=== PATIENT | female | born 1945 | race Hispanic/Latino ===

== ENCOUNTER → 2018-09-13 | Outpatient (CLI) | payer MEDICARE, OTHER ==
[~2018-09-13] MED LIST: IOPAMIDOL 370 MG/ML 200 ML INFUS..BTL INJ ONE; SODIUM CHLORIDE 0.9% 50ML 50 ML ONE
[2018-09-13 09:37] LABS: BLOOD UREA NITROGEN 17 mg/dL (7-26); BUN/CREATININE RATIO 24 (6-25); EST GLOMERULAR FILTRATION RATE > 60 ML/MIN (60-)
--- NOTE | 2018-09-13 11:28 | Diagnostic Imaging Report ---
EXAM: CT Abdomen and Pelvis WITH contrast INDICATION: Gallbladder calculus. COMPARISON: None. TECHNIQUE: Abdomen and pelvis were scanned utilizing a multidetector helical scanner from the lung base to the pubic symphysis after administration of IV contrast. Coronal and sagittal reformations were obtained. Routine protocol was performed. Scan was performed when during portal venous phase. IV CONTRAST: 100 cc of Isovue 370 ORAL CONTRAST: Water COMPLICATIONS: None RADIATION DOSE: Total DLP: 323.3 mGy*cm Dose modulation, iterative reconstruction, and/or weight based adjustment of the mA/kV was utilized to reduce the radiation dose to as low as reasonably achievable. FINDINGS: LINES and TUBES: None. LOWER THORAX: Patchy opacities at the lung bases, likely atelectasis. HEPATOBILIARY: Diffuse mild hepatic steatosis. No evidence of focal lesion. No biliary ductal dilation. GALLBLADDER: No radio-opaque stones or sludge. No wall thickening. There is a gallbladder fold. SPLEEN: No splenomegaly. PANCREAS: No focal masses or ductal dilatation. ADRENALS: No adrenal nodules KIDNEYS/URETERS: Kidneys enhance symmetrically. No evidence of hydronephrosis, solid mass, or stone. Subcentimeter left renal hypodensities are too small to characterize, but likely represent cysts. There is a 1.2 cm left lower pole renal cyst. GI TRACT: No evidence of wall thickening or distension. Appendix is not clearly identified. There is however no fat stranding or adenopathy in the right lower quadrant to suggest appendicitis. There is scattered colonic diverticulosis without CT evidence of diverticulitis. PELVIC ORGANS/BLADDER: The uterus is not visualized. LYMPH NODES: No lymphadenopathy. Nonspecific 7 mm right pericecal lymph node. VESSELS: There are scattered atherosclerotic calcifications in the aorta and branch vessels with associated tortuosity. PERITONEUM / RETROPERITONEUM: No free air or fluid. BONES AND SOFT TISSUES: No acute osseous abnormality. No suspicious lytic or blastic lesions.. CONCLUSION: No evidence of gallstone as clinically queried. Mild hepatic steatosis. Signed by: Dr. Monica Venegas MD on 09/13/2018 11:25 AM
--- NOTE | 2018-09-14 09:01 | Diagnostic Imaging Report ---
EXAM: Bone mineral density study 09/13/2018 8:09 AM INDICATION: ^OSTEOPOROSIS COMPARISON: Previous DEXA none. Baseline DEXA none FINDINGS: Evaluation of the left hip and lumbar spine was performed. The study is technically adequate. The patient's fracture risk is compared to an age-matched control. The patient denies prior surgery/fracture of the spine, hips or forearm. LEFT HIP * Femoral neck bone mineral density: 0.537 gm/cm2, T-score is -2.9, Z-score is -0.8. * Total bone mineral density: 0.632 gm/cm2, T-score is -2.5, Z-score is -0.6. LUMBAR SPINE * Total bone mineral density: 0.607 gm/cm2, T-score is -4.0, Z-score is -1.6. IMPRESSION: 1. LEFT HIP: Bone mineralization by WHO Classification is osteoporosis, the fracture risk is high. 2. LUMBAR SPINE: Bone mineralization by WHO Classification is osteoporosis, the fracture risk is high. <T score: NL = -1 or higher Osteopenia = -1 to -2.5 Osteoporosis = -2.5 or lower Z score: < - 2 concerning for path> Signed by: Dr. Jacques Cook M.D. on 09/14/2018 8:57 AM
== END ==
LOC: CT 07:51
PROVIDERS: ATTEND Internal Medicine
DX: Z12.31 Encounter for screening mammogram for malignant neoplasm of breast (principal); M81.0 Age-related osteoporosis without current pathological fracture; K82.9 Disease of gallbladder, unspecified; I73.9 Peripheral vascular disease, unspecified; K76.0 Fatty (change of) liver, not elsewhere classified
CPT/HCPCS: 36415; 74177; 77067; 77080; 82565; 84520; Q9967